=== PATIENT | female | born 1950 | race Caucasian/White ===

== ENCOUNTER 2017-12-14 08:15 | Emergency (ER) | payer MEDICARE ==
[2017-12-14 08:15] VITALS: BMI 24.7
[2017-12-14 08:35] VITALS: PULSE 61; RESP 18; TEMP 97.7; O2SAT 100
--- NOTE | 2017-12-14 09:24 | C.PDOC ---
History Of Present Illness 67 year old female presents to ED for evaluation of left lower and mid back pain for the past 2 months but worse in the past week. Patient states pain is worse when standing or sitting straight, and when walking. She admits to right leg pain but denies weakness, or numbness. Denies trauma, injury, urinary symptoms, abdominal pain, or fever. Time Seen by Provider: 12/14/17 08:37 Chief Complaint (Nursing): Back Pain History Per: Patient History/Exam Limitations: no limitations Onset/Duration Of Symptoms: Days Current Symptoms Are (Timing): Still Present Quality Of Discomfort: "Pain" Previous Symptoms: Back Pain. denies: Prior Injury Associated Symptoms: None. denies: Incontinence, New Weakness, New Numbness Exacerbating Factor(s): Sitting, Standing Recent travel outside of the [place]: No Additional History Per: Patient Past Medical History Reviewed: Historical Data, Nursing Documentation, Vital Signs Vital Signs: Last Vital Signs Temp 97.7 F 12/14/17 08:30 Pulse 61 12/14/17 08:30 Resp 18 12/14/17 08:30 BP Pulse Ox 100 12/14/17 10:07 - Medical History PMH: HTN - [facility] Procedures CATARAC PHACOEMULS/ASPIR (06/03/13) INSERT LENS AT CATAR EXT (06/03/13) Family History: States: Unknown Family Hx - Social History Hx Tobacco Use: No Hx Alcohol Use: No Hx Substance Use: No - Immunization History Hx Tetanus Toxoid Vaccination: No Hx Influenza Vaccination: No Hx Pneumococcal Vaccination: No Review Of Systems Except As Marked, All Systems Reviewed And Found Negative. Constitutional: Negative for: Fever, Chills Cardiovascular: Negative for: Chest Pain Respiratory: Negative for: Cough, Shortness of Breath Gastrointestinal: Negative for: Nausea, Vomiting, Abdominal Pain Genitourinary: Negative for: Dysuria, Frequency, Incontinence, Hematuria Musculoskeletal: Positive for: Back Pain Neurological: Negative for: Weakness, Numbness Physical Exam - Physical Exam Appears: Non-toxic, No Acute Distress Skin: Normal Color, Warm, Dry Head: Atraumatic, Normacephalic Eye(s): bilateral: Normal Inspection, EOMI Oral Mucosa: Moist Neck: Normal ROM, Supple Cardiovascular: Rhythm Regular, No Murmur Respiratory: Normal Breath Sounds, No Rales, No Rhonchi, No Wheezing Gastrointestinal/Abdominal: Soft, No Tenderness Back: No CVA Tenderness, No Vertebral Tenderness, Decreased ROM, Paraspinal Tenderness (left lumbar and sacral tenderness) Extremity: Bilateral: Atraumatic, Normal Color And Temperature, Normal ROM Neurological/Psych: Oriented x3, Normal Speech Gait: Steady ED Course And Treatment O2 Sat by Pulse Oximetry: 100 (RA) Pulse Ox Interpretation: Normal Medical Decision Making Medical Decision Making: Impression: 67 year old female with left lower, and mid back pain worse in the past week. Plan: * Urinalysis * LS spine * Toradol, Valium Reassess: LS spine xray shows degenerative disease, no compression fx. Patient reevaluated and reports pain mildly improving. Patient has no midline tenderness, fever or difficulty ambulating on her own. Patient stable for discharge and rx given. Disposition Counseled Patient/Family Regarding: Diagnosis, Need For Followup, Rx Given - Disposition Referrals: Sukumar Buckner MD [Staff Provider] - Disposition: HOME/ ROUTINE Disposition Time: 10:05 Condition: GOOD Additional Instructions: Take pain medication daily You can also take Tylenol 500mg and apply heat to the area Follow up with your primary medical doctor or clinic in 2-5 days for further evaluation Prescriptions: Meloxicam 7.5 mg PO DAILY #30 tablet Instructions: Low Back Pain in Adults Forms: [facility] (B[place]ian) - POA Present On Arrival: None - Clinical Impression Clinical Impression: Low back pain - PA / MENTAL HYGIENIST / Resident Statement MD/DO has reviewed & agrees with the documentation as recorded. - Scribe Statement The provider has reviewed the documentation as recorded by the Scribe Suzan Buckner All medical record entries made by the Shaylaibmo were at my direction and personally dictated by me. I have reviewed the chart and agree that the record accurately reflects my personal performance of the history, physical exam, medical decision making, and the department course for this patient. I have also personally directed, reviewed, and agree with the discharge instructions and disposition.
[2017-12-14 09:28] LABS: SQUAMOUS EPITHIAL < 1 /hpf (0-5); URINE BACTERIA RARE (<OCC); URINE BILIRUBIN NEGATIVE (NEGATIVE); URINE BLOOD NEGATIVE (NEGATIVE); URINE CLARITY Clear (Clear); URINE COLOR Yellow (YELLOW); URINE GLUCOSE (UA) NORMAL (Normal); URINE LEUKOCYTE ESTERASE 2+ Leu/uL (Negative); URINE PROTEIN NEGATIVE (NEGATIVE); URINE UROBILINOGEN NORMAL mg/dL (0.2-1.0)
--- NOTE | 2017-12-14 13:41 | RAD ---
PROCEDURE: Radiographs of the Lumbar Spine. HISTORY: low left back pain COMPARISON: No prior. FINDINGS: BONES: Vertebral bodies maintained in height. Transverse processes and posterior elements are intact. Mild dextroscoliotic curvature. DISC SPACES: Narrowing of L2-3 disc space with endplate sclerosis and osteophytes, consistent with degenerative disc disease. Remaining disc spaces maintained in height. OTHER FINDINGS: None. IMPRESSION: Degenerative disc disease L2-3 with mild dextroscoliosis.
== END 2017-12-14 10:15 | disposition home or self-care (01) ==
LOC: C.ER 08:15
DX: M54.5 Low back pain (principal)
CPT/HCPCS: 72100; 81001; 96372; 99284; J1885

== ENCOUNTER 2018-10-02 16:50 | Outpatient (CLI) | payer MEDICARE | END 2018-10-02 16:51 | disposition home or self-care (01) | LOC: C.RADIC 16:50 | DX: R07.81 Pleurodynia (principal); M54.6 Pain in thoracic spine; E78.2 Mixed hyperlipidemia ==